=== PATIENT | female | born 1965 ===

== ENCOUNTER 2022-07-03 06:43 | Emergency (ER) | payer BC | END 2022-07-03 19:20 | disposition home or self-care (01) | LOC: DL.ED 06:43 | DX: S01.81XA Laceration without foreign body of other part of head, initial encounter (principal); W22.09XA Striking against other stationary object, initial encounter | CPT/HCPCS: 12001; 99282 ==

== ENCOUNTER 2025-04-14 16:43 | Emergency (ER) | payer BC, OTHER ==
[2025-04-14] MEDS ORDERED: Sodium Chloride 0.9% 10 ML Syringe FLUSH PRN (17:45)
[2025-04-14 17:46] LABS: APPEARANCE,URINE CLEAR (CLEAR); GLUCOSE,URINE NEGATIVE (NEGATIVE); OCCULT BLOOD,URINE NEGATIVE (NEGATIVE)
[2025-04-14 18:03] LABS: BASOPHILS PERCENT AUTO 0.2 % (0.0-1.0); EOSINOPHILS PERCENT AUTO 0.5 % (1.0-3.0); LYMPHOCYTES PERCENT AUTO 8.3 % (20.5-50.1); MONOCYTES PERCENT AUTO 10.8 % (2-8); NEUTROPHILS PERCENT AUTO 80.2 % (42.2-75.2); PLATELET COUNT,PLT 206 10^3/uL (150-450); RED BLOOD CELL COUNT 3.69 10^6/uL (4.2-5.4); WHITE BLOOD CELL COUNT,WBC 8.5 10^3/uL (5.0-10.0)
[2025-04-14 18:04] LABS: EPITHELIAL CELLS,URINE FEW /HPF (NOT SEEN)
[2025-04-14 18:23] LABS: A/G RATIO 1.1; ALANINE AMINOTRANSFERASE,ALT 31.0 U/L (14-59); ASPARTATE AMNIOTRANSFERASE,AST 26.0 U/L (15-37); BILIRUBIN TOTAL 0.7 mg/dL (0.2-1.0); BLOOD UREA NITROGEN,BUN 14.0 mg/dL (7-18); CARBON DIOXIDE,CO2 25.0 mmol/L (21-32); CHLORIDE,CL 100.0 mmol/L (98-107); CREATININE 0.95 mg/dL (0.55-1.02); EST CRCL DRUG DOSING (CG) 53.4 mL/min; GLUCOSE RANDOM 94.0 mg/dL (70-99); POTASSIUM,K 3.5 mmol/L (3.5-5.1); PROTEIN TOTAL,TP 7.4 g/dL (6.4-8.2); SODIUM,NA 136.0 mmol/L (136-145)
[2025-04-14 18:40] LABS: ESTIMATED GFR 69.0 mL/min (>=60)
== END 2025-04-14 18:54 | disposition home or self-care (01) ==
LOC: DL.ED 16:43
DX: N39.0 Urinary tract infection, site not specified (principal)
CPT/HCPCS: 36415; 80053; 81001; 83605; 83735; 85025; 86140; 87086; 99283; A9270-GY